=== PATIENT | female | born 1970 | race Caucasian/White ===

== ENCOUNTER 2017-07-04 16:16 | Emergency (ER) | payer BC ==
[2017-07-04] MEDS ORDERED: Sodium Chloride 0.9% 5 ML Syringe FLUSH PRN (16:31)
[2017-07-04] MEDS ORDERED: Nitroglycerin 0.4 MG Tab.SL SL PRN (16:36)
[2017-07-04] MEDS ORDERED: Aspirin 81 MG Tab.Chew PO ONE (16:36)
--- NOTE | 2017-07-04 16:38 | EDM.PDOC ---
ED HPI GENERAL MEDICAL PROBLEM - General Chief Complaint: Chest Pain Stated Complaint: CHEST PAIN Time Seen by Provider: 07/04/17 16:32 Source of Information: Reports: Patient History Limitations: Reports: No Limitations - History of Present Illness INITIAL COMMENTS - FREE TEXT/NARRATIVE: 47 YO WF presents to ER complaining of right sided chest pain which began 3 hours ago. Pt states she had an episode earlier this week but it went away requiring no treatment. Pt reports she was laying down around 1pm when her pain began. Pt reports associated shortness of breath, and nausea but denies dizziness, radiating pain or diaphoresis. Onset: Today Duration: Hour(s): (3) Location: Reports: Chest Quality: Reports: Ache Severity: Moderate Improves with: Reports: None Worsens with: Reports: None Associated Symptoms: Reports: Chest Pain, Nausea/Vomiting, Shortness of Breath. Denies: Fever/Chills, Syncope - Related Data Allergies Allergy/AdvReac Type Severity Reaction Status Date / Time No Known Allergies Allergy Verified 07/04/17 16:32 Home Meds: Home Meds . [Unable to Verify Home Med List] 07/04/17 [History] ED ROS GENERAL - Review of Systems Review Of Systems: See Below Constitutional: Reports: No Symptoms HEENT: Reports: No Symptoms Respiratory: Reports: No Symptoms Cardiovascular: Reports: Chest Pain Endocrine: Reports: No Symptoms GI/Abdominal: Reports: Nausea : Reports: No Symptoms Musculoskeletal: Reports: No Symptoms Skin: Reports: No Symptoms Neurological: Reports: No Symptoms Psychiatric: Reports: No Symptoms Hematologic/Lymphatic: Reports: No Symptoms Immunologic: Reports: No Symptoms ED EXAM, GENERAL - Physical Exam Exam: See Below Exam Limited By: No Limitations General Appearance: Alert, WD/WN, No Apparent Distress Head: Atraumatic, Normocephalic Neck: Normal Inspection, Supple, Non-Tender, Full Range of Motion Respiratory/Chest: No Respiratory Distress, Lungs Clear, Normal Breath Sounds, No Accessory Muscle Use, Chest Non-Tender Cardiovascular: Normal Peripheral Pulses, Regular Rate, Rhythm, No Edema, No Gallop, No JVD, No Murmur, No Rub GI/Abdominal: Normal Bowel Sounds, Soft, Non-Tender, No Organomegaly, No Distention, No Abnormal Bruit, No Mass Back Exam: Normal Inspection, Full Range of Motion, NT Extremities: Normal Inspection, Normal Range of Motion, Non-Tender, Normal Capillary Refill, No Pedal Edema Neurological: Alert, Oriented, CN II-XII Intact, Normal Cognition, Normal Gait, Normal Reflexes, No Motor/Sensory Deficits Psychiatric: Normal Affect, Normal Mood Skin Exam: Warm, Dry, Intact, Normal Color, No Rash Lymphatic: No Adenopathy ED CARDIOLOGY PROCEDURES - Endotracheal Intubation Time of Intubation: 17:05 ET Intubation Indication: Cardiac Arrest Preparation: Suction, Balloon Tested, BVM Set Up Airway Assessment: Profuse Secretions, Large Tongue Pre-Oxygenation: Assisted with BVM, 100% FiO2 Placement: Orotracheal, Uncomplicated Placement Cords Visualized: Yes Number of Attempts: 2 Confirmed By: CO2 Indicator, Bilateral Breath Sounds Tube Secured By: By Provider EKG INTERPRETATION EKG Date: 07/04/17 Time: 16:21 Rhythm: NSR Rate (Beats/Min): 90 [place]: Normal P-Wave: Present QRS: Normal ST-T: Normal QT: Normal Comparison: NA - No Prior EKG Course - Vital Signs Last Recorded V/S: Last Vital Signs Temp 36.8 C 07/04/17 16:33 Pulse 83 07/04/17 16:33 Resp 20 07/04/17 16:33 BP 141/60 H 07/04/17 16:45 Pulse Ox 100 07/04/17 16:33 - Orders/Labs/Meds Orders: Active Orders 24 hr Category Date Time Status EKG Documentation Completion [RC] ASDIRECTED Care 07/04/17 16:31 Active Peripheral IV Care [RC] . DIRECTED Care 07/04/17 16:31 Active Chest 1V Frontal [CR] Stat Exams 07/04/17 16:31 Ordered Nitroglycerin [Nitrostat] Med 07/04/17 16:36 Ordered 0.4 mg SL Q5M PRN Sodium Chloride 0.9% [Syrex Flush] Med 07/04/17 16:31 Active 5 ml FLUSH Q8HR PRN Peripheral IV Insertion Adult [OM.PC] Routine Oth 07/04/17 16:31 Ordered EKG 12 Lead [EK] Routine Ther 07/04/17 16:31 Ordered Medication Orders Nitroglycerin (Nitrostat) 0.4 mg SL Q5M PRN PRN Reason: Chest Pain Last Admin: 07/04/17 16:45 Dose: 0.4 mg Sodium Chloride (Syrex Flush) 5 ml FLUSH Q8HR PRN PRN Reason: Keep Vein Open Last Admin: 07/04/17 16:47 Dose: 5 ml Labs: Laboratory Tests 07/04/17 07/04/17 07/04/17 Range/Units 16:30 16:30 16:30 WBC 13.4 H (5.0-10.0) 10^3/uL RBC 4.75 (3.80-5.50) 10^6/uL Hgb 13.6 (12.0-16.0) g/dL Hct 43.0 (37.0-47.0) % MCV 90.5 (82.0-92.0) fL MCH 28.6 (27.0-31.0) pg MCHC 31.6 L (32.0-36.0) g/dL RDW 13.2 (11.5-14.5) % Plt Count 455 H (150-300) 10^3/uL MPV 7.5 (7.4-10.4) fL Neut % (Auto) 71.9 H (50.0-70.0) % Lymph % (Auto) 17.1 L (20.0-40.0) % [place] % (Auto) 5.2 (2.0-8.0) % Eos % (Auto) 5.1 H (1.0-3.0) % Baso % (Auto) 0.7 (0.0-1.0) % Neut # (Auto) 9.6 H (2.5-7.0) 10^3/uL Lymph # (Auto) 2.3 (1.0-4.0) 10^3/uL [place] # (Auto) 0.7 (0.1-0.8) 10^3/uL Eos # (Auto) 0.7 H (0.1-0.3) 10^3/uL Baso # (Auto) 0.1 (0.0-0.1) 10^3/uL PT 9.1 (8.9-11.4) SEC INR 0.9 (0.9-1.1) APTT 24.9 (20.8-31.2) SEC Sodium 140 (136-145) mmol/L Potassium 3.5 (3.3-5.3) mmol/L Chloride 101 (98-115) mmol/L Carbon Dioxide 25.6 (21.0-32.0) mmol/L BUN 10 (6-25) mg/dL Creatinine 0.70 (0.51-1.17) mg/dL Est Cr Clr Drug Dosing 76.58 mL/min Estimated GFR (MDRD) > 60 mL/min Glucose 111 H (70-110) mg/dL Calcium 8.7 (8.7-10.3) mg/dL Total Bilirubin 0.4 (0.2-1.0) mg/dL AST 13 L (15-37) U/L ALT 19 (12-78) U/L Alkaline Phosphatase 66 (46-116) IU/L Creatine Kinase 65 (26-276) U/L CK-MB (CK-2) < 0.50 (0.00-4.30) ng/mL Troponin I 0.14 H* (0.00-0.070) ng/mL Total Protein 7.4 (6.4-8.2) g/dL Albumin 3.75 (3.00-4.80) g/dL Meds: Medications Generic Name Dose Route Start Last Admin Trade Name Freq PRN Reason Stop Dose Admin Nitroglycerin 0.4 mg 07/04/17 16:36 07/04/17 16:45 Nitrostat SL 0.4 mg Q5M PRN Administration Chest Pain Sodium Chloride 5 ml 07/04/17 16:31 07/04/17 16:47 Syrex Flush FLUSH 5 ml Q8HR PRN Administration Keep Vein Open Discontinued Medications Generic Name Dose Route Start Last Admin Trade Name Freq PRN Reason Stop Dose Admin Aspirin 324 mg 07/04/17 16:36 07/04/17 16:43 Aspirin PO 07/04/17 16:37 324 mg ONETIME ONE Administration Departure - Departure Time of Disposition: 17:52 Disposition: 20 Preliminary Cause of *Q: Cardiac Arrest Clinical Impression: Cardiac arrest Forms: ED Department Discharge Critical Care Note - Critical Care Note Total Time (mins): 60 Comments: Called to bedside by RN due to cardiac arrest. E-medicine was activated. initial rhythm on the monitor was V fib. Pt was placed on lifepack monitor as CPR was started. Pt was shocked at 200 joules followed by CPR. Pt was intubated with 7.0 ET tube with good breath sounds after second attempt. Monitor showed either fine V fib or asystole throughout code. Pt was given 6 rounds of epinephrine, shocked 5 times, given bicarb 1 amp, amnioderone 300mg, then 150mg , calcium gluconate 1 amp, magnesium 2g without any return of pulse or spontaneous breathing. Code was assisted by Praneeth MORALES. - My Orders Last 24 Hours: My Active Orders 07/04/17 16:31 EKG Documentation Completion [RC] ASDIRECTED Peripheral IV Care [RC] . DIRECTED Chest 1V Frontal [CR] Stat Sodium Chloride 0.9% [Syrex Flush] 5 ml FLUSH Q8HR PRN Peripheral IV Insertion Adult [OM.PC] Routine EKG 12 Lead [EK] Routine 07/04/17 16:36 Nitroglycerin [Nitrostat] 0.4 mg SL Q5M PRN - Assessment/Plan Last 24 Hours: My Active Orders 07/04/17 16:31 EKG Documentation Completion [RC] ASDIRECTED Peripheral IV Care [RC] . DIRECTED Chest 1V Frontal [CR] Stat Sodium Chloride 0.9% [Syrex Flush] 5 ml FLUSH Q8HR PRN Peripheral IV Insertion Adult [OM.PC] Routine EKG 12 Lead [EK] Routine 07/04/17 16:36 Nitroglycerin [Nitrostat] 0.4 mg SL Q5M PRN Assessment:: 1. Cardiac arrest Plan: 1. 2. family notified 3. pastoral care provided 4. [employer] barista notified
[2017-07-04] MEDS: EPINEPHrine 1:10,000 1 MG/10 ML Syringe IVPUSH ONE ×5 (16:54→17:21)
[2017-07-04 17:11] LABS: CHLORIDE,CL 101 mmol/L (98-115); SODIUM,NA 140 mmol/L (136-145)
[2017-07-04] MEDS ORDERED: EPINEPHrine 1 MG/ML 30 ML MDV IVPUSH ONE ×4 (18:38→18:46)
[2017-07-04] MEDS ORDERED: Magnesium Sulfate/Water 2 GM in Premix Bag 1 BAG IV ONE (18:38)
[2017-07-04] MEDS ORDERED: Sodium Bicarbonate 8.4% 50 MEQ/50 ML Syringe IVPUSH ONE (18:38)
[2017-07-04] MEDS ORDERED: Calcium Chloride 10% 1 GM/10 ML Syringe IVPUSH ONE (18:43)
[2017-07-04] MEDS ORDERED: Amiodarone 300 MG in Dextrose 5% in Water 100 ML IV ONE ×4 (18:43→18:49)
[2017-07-04] MEDS ORDERED: Amiodarone 150 MG in Dextrose 5% in Water 100 ML IV ONE ×2 (18:45)
== END 2017-07-04 17:27 | disposition expired ==
LOC: MERGE 16:16 → KA.ED 16:16
DX: I46.9 Cardiac arrest, cause unspecified (principal)
CPT/HCPCS: 31500; 71045; 80053; 82550; 82553; 82962; 84484; 85025; 85610; 85730; 92960; 93005; 96374; 96375; 99285; A9270-GY; J0171; J0282; J3475; J7060